=== PATIENT | male | born 1955 | race Caucasian/White ===

== ENCOUNTER 2017-12-02 10:46 | Observation (INO) | payer OTHER ==
[~2017-12-02] VITALS: Ht 172.7 cm; Wt 91.0 kg
[2017-12-02] MEDS ORDERED: METO50TA16 PO (11:19)
[2017-12-02] MEDS ORDERED: MULT-513 PO (11:19)
[2017-12-02] MEDS ORDERED: TRAM-10 PO (11:19)
[2017-12-02] MEDS ORDERED: LISI-729 PO (11:19)
[2017-12-02] MEDS ORDERED: POTASSIUM PO (11:19)
[2017-12-02] MEDS ORDERED: CLIN300C2 PO (11:19)
[2017-12-02] MEDS ORDERED: [UNRECOGNIZED DRUG - REMARK] PO (11:19)
[2017-12-02] MEDS ORDERED: ACET-1256 PO (11:19)
[2017-12-02] MEDS ORDERED: LORA-741 PO (11:19)
[2017-12-02 11:20] VITALS: BP 144/87; PULSE 50; TEMP 36.7; O2SAT 97
[2017-12-02] MEDS ORDERED: BACITRACIN 50000 UNIT VIAL ONE (12:50)
[2017-12-02] MEDS ORDERED: MIDAZOLAM HCL 1 MG/ML 2ML VIAL ONE (12:52)
[2017-12-02] MEDS ORDERED: FENTANYL CITRATE INJ 50 MCG/1 ML 2 ML VIAL ONE (12:52)
[2017-12-02] MEDS ORDERED: PROPOFOL IV EMULSION 10 MG/ML 20 ML VIAL ONE (12:52)
[2017-12-02] MEDS ORDERED: LIDOCAINE HCL 2% 2 ML VIAL (20MG/ML) ONE (12:52)
[2017-12-02] MEDS ORDERED: CEFAZOLIN 2000MG IV PUSH 15 ML IV STA (13:45)
[2017-12-02] MEDS ORDERED: NURSING VERBAL MED ORDER ONE ×2 (13:45→22:30)
[2017-12-02] MEDS ORDERED: BUPIVACAINE 0.5 % 5 MG/1 ML PF 10ML VIAL ONE (14:13)
--- NOTE | 2017-12-02 14:15 | HISTORY & PHYSICAL EXAMINATION ---
DATE OF ADMISSION: 12/02/2017 CHIEF COMPLAINT: Right hand infection. HISTORY OF PRESENT ILLNESS: The patient is a 62-year-old male, states he got a piece of wood stuck in his hand approximately 2 weeks ago. He was seen by his primary care physician approximately 1 week after the initial injury. He was put on oral antibiotics. Recently, he has had worsening swelling, pain and drainage about the hand. He presented to our office today for evaluation. Examination reveals likely draining abscess from the ulnar side of the hand. He is now scheduled for a right hand I and D. PAST MEDICAL HISTORY: Hypertension. PAST SURGICAL HISTORY: Vasectomy, bilateral total knee arthroplasty, ORIF of left wrist, tonsillectomy. MEDICATIONS: Lisinopril, metoprolol. ALLERGIES: SULFA CAUSES A RASH. REVIEW OF SYSTEMS: Noncontributory. PHYSICAL EXAMINATION: GENERAL: Well-nourished, well-developed male who appears stated age. HEENT: Normocephalic, atraumatic, extraocular movements intact, oropharynx pink and moist. NECK: Supple without adenopathy. LUNGS: Clear to auscultation bilaterally. HEART: Regular rate and rhythm. ABDOMEN: Soft, nontender, nondistended. EXTREMITIES: The right ulnar-sided hand demonstrates some obvious swelling in the hypothenar eminence. There are 2 draining wounds on the ulnar side of the hand with purulent drainage. The hand is exquisitely tender to touch. X-RAYS: He had previous x-rays at the urgent care which were negative. ASSESSMENT: Right hand abscess, possible retained foreign body. PLAN: Risks versus benefits were discussed, consent was obtained. We are going to get him set up for an I and D of the right hand. He will spend the night in the hospital for IV antibiotics and will continue as indicated.
[2017-12-02] MEDS ORDERED: DEXAMETHASONE SOD INJ 4 MG/ML VIAL ONE (14:45)
[2017-12-02] MEDS ORDERED: ONDANSETRON INJ 2 MG/ML 2 ML VIAL ONE (14:45)
[2017-12-02] MEDS ORDERED: EpHEDrine SULFATE 50MG/5ML SYR ONE (14:50)
[2017-12-02] MEDS ORDERED: ZOLPIDEM TARTRATE 5 MG TAB PO PRN (15:00)
[2017-12-02] MEDS ORDERED: TRAMADOL HCL 50 MG TAB PO PRN (15:00)
[2017-12-02] MEDS ORDERED: ONDANSETRON INJ 2 MG/ML 2 ML VIAL IV PRN ×2 (15:00→15:15)
[2017-12-02] MEDS ORDERED: METOCLOPRAMIDE HCL INJ 5 MG/ML 2 ML VIAL IV PRN (15:00)
[2017-12-02] MEDS ORDERED: ALUMINUM/MAGNESIUM/SIMETH (MAALOX MAX) 30 ML UDC PO PRN (15:00)
--- NOTE | 2017-12-02 15:07 | [facility] Operative Report ---
Operative Report Operative Date Dec 02, 2017. Pre-Operative Diagnosis Right Hand Incision and Drainage Post-Operative Diagnosis Same as preop Procedure(s) Performed Right Hand Incision and Drainage Surgeon Dr. Herrera Binder Operator Surgeon(s) none Estimated Blood Loss 20 ML Findings 2cm woodun splinter Specimens Microbiology 1. Right Hand Abscess-culture and sensitivity, anerobic and aerobic, gram stain Drains None Anesthesia Type General Complication(s) none Disposition no Recovery Room / PACU I attest to the content of the Intraoperative Record and any orders documented therein. Any exceptions are noted below.
[2017-12-02] MEDS ORDERED: NALOXONE HCL 0.4 MG/1 ML VIAL/CARP IV PRN (15:15)
[2017-12-02] MEDS ORDERED: FLUMAZENIL 0.1 MG/1 ML 10 ML VIAL IV PRN (15:15)
[2017-12-02] MEDS ORDERED: EpHEDrine SULFATE INJ 50 MG/ML AMP IV PRN (15:15)
[2017-12-02] MEDS ORDERED: ATROPINE SULFATE 0.1 MG/ML 5ML SYR IV PRN (15:15)
[2017-12-02] MEDS ORDERED: PROMETHAZINE HCL INJ 12.5 MG in SODIUM CHLORIDE 0.9% 50ML 50 ML IV PRN (15:15)
[2017-12-02] MEDS ORDERED: HYDROmorphone INJ 0.5 MG/0.5 ML SYR IV PRN (15:15)
--- NOTE | 2017-12-02 15:50 | Anesthesiology Progress Note ---
Anesthesia Post Op Note Date & Time Dec 02, 2017 at 15:50 Vital Signs Pain Intensity: 0 Vital Signs Past 12 Hours Date Time Temp Pulse Resp B/P (MAP) Pulse Ox O2 Delivery O2 Flow Rate FiO2 12/02/17 15:40 60 20 144/91 96 Room Air 12/02/17 15:30 66 19 138/83 94 Room Air 12/02/17 15:20 70 20 131/99 96 Room Air 12/02/17 15:10 71 16 123/73 100 Oxymask 4 12/02/17 15:08 36.3 66 18 127/74 100 Oxymask 10 12/02/17 11:20 36.7 50 18 144/87 (106) 97 Room Air Notes Mental Status: alert / awake / arousable, participated in evaluation Pt Amnestic to Procedure: Yes Nausea / Vomiting: adequately controlled Pain: adequately controlled Airway Patency, RR, SpO2: stable & adequate BP & HR: stable & adequate Hydration State: stable & adequate Anesthetic Complications: no major complications apparent
[2017-12-02] MEDS ORDERED: IV FLUIDS COMPLETED PRN (16:00)
[2017-12-02 16:14] VITALS: BP 139/87; PULSE 60; TEMP 36.6; Ht 172.7 cm; Wt 91.0 kg
[2017-12-02] MEDS ORDERED: D5W AND 1/2NSS + 20MEQ KCL 1,000 ML IV SCH (16:40)
[2017-12-02 16:41] VITALS: BP 148/78; PULSE 66; TEMP 36.5; O2SAT 93
--- NOTE | 2017-12-02 16:42 | OPERATIVE REPORT ---
DATE OF OPERATION: 12/02/2017 PREOPERATIVE DIAGNOSIS: Foreign body with abscess, right hand. POSTOPERATIVE DIAGNOSIS: Foreign body with abscess, right hand. PROCEDURE: Incision and drainage and removal of wooden foreign body, right hand. SURGEON: Dr. Herrera. ANESTHESIA: General. COMPLICATIONS: None. DESCRIPTION OF PROCEDURE: Following induction of adequate general anesthesia, the patient's right hand was prepped and draped in usual sterile manner. Limb was exsanguinated with elevation only and tourniquet was inflated to 250 mmHg. An L-shaped incision was made from the entrance wound to the area of purulence. It was a V-shaped incision. Initial purulence was cultured, and blunt and sharp dissection was used to explore the wound tract. At the base of the wound, a wooden splinter was identified. The hand was irrigated with roughly 4500 mL of pulsatile irrigation with Kantrex. There being no additional foreign bodies or purulence. The incision was loosely closed by just using a single 3-0 nylon simple suture at the apex of the incision. Sterile dressing of Adaptic, 4x4s, Kerlix and 2-inch Chad was applied. The patient tolerated the procedure well. I attest to the content of the Intraoperative Record and any orders documented therein. Any exception s are noted below.
[2017-12-02 17:13] VITALS: BP 142/82; PULSE 64; TEMP 36.6; O2SAT 96
[2017-12-02 18:07] VITALS: BP 150/76; PULSE 67; TEMP 36.8; O2SAT 93
[2017-12-02 18:26] LABS: CREATININE 0.93 mg/dl (0.60-1.40)
[2017-12-02] MEDS: KETOROLAC TROMETHAMINE 30 MG/ML VIAL IV. SCH (20:19)
[2017-12-02 20:25] VITALS: BP 142/84; PULSE 79; TEMP 36.6; O2SAT 95
[2017-12-02] MEDS: CEFAZOLIN IV 2,000 MG in SYRINGE 0 ML IV SCH (21:51)
[2017-12-02] MEDS: ACETAMINOPHEN 500 MG TAB PO SCH (21:56)
[2017-12-03 00:05] VITALS: BP 142/83; PULSE 58; TEMP 36.6; O2SAT 95
[2017-12-03] MEDS: KETOROLAC TROMETHAMINE 30 MG/ML VIAL IV. SCH ×2 (02:26→08:53)
[2017-12-03 03:50] VITALS: BP 132/84; PULSE 74; TEMP 36.7; O2SAT 95
[2017-12-03] MEDS: ACETAMINOPHEN 500 MG TAB PO SCH (06:17)
[2017-12-03] MEDS: CEFAZOLIN IV 2,000 MG in SYRINGE 0 ML IV SCH (06:17)
[2017-12-03 07:21] VITALS: BP 148/89; PULSE 49; TEMP 36.6; O2SAT 96
[2017-12-03] MEDS ORDERED: METOPROLOL TARTRATE 50 MG TAB PO SCH (09:00)
[2017-12-03] MEDS ORDERED: LISINOPRIL 5 MG TAB PO SCH (09:00)
--- NOTE | 2017-12-03 09:22 | Orthopedic Progress Note ---
Orthopedic Progress Note Date of Service Dec 03, 2017. Subjective Post OP Day: 1 Reports: feeling well Objective N/V intact (fingers mobile), dressing C/D/I (Dressing changed, incision clean and dry) Date Time Temp Pulse Resp B/P (MAP) Pulse Ox O2 Delivery O2 Flow Rate FiO2 12/03/17 07:21 36.6 49 16 148/89 (108) 96 Room Air 12/03/17 03:50 36.7 74 20 132/84 (100) 95 Room Air 12/03/17 00:05 36.6 58 20 142/83 (102) 95 Room Air 12/02/17 23:15 Room Air 12/02/17 20:25 36.6 79 18 142/84 (103) 95 Room Air 12/02/17 18:07 36.8 67 18 150/76 (100) 93 Room Air 12/02/17 17:13 36.6 64 18 142/82 (102) 96 Room Air 12/02/17 16:41 36.5 66 16 148/78 (101) 93 Room Air 12/02/17 16:35 Room Air 12/02/17 16:14 36.6 60 16 139/87 Room Air 12/02/17 15:50 36.3 64 22 139/79 97 Room Air 12/02/17 15:40 60 20 144/91 96 Room Air 12/02/17 15:30 66 19 138/83 94 Room Air 12/02/17 15:20 70 20 131/99 96 Room Air 12/02/17 15:10 71 16 123/73 100 Oxymask 4 12/02/17 15:08 36.3 66 18 127/74 100 Oxymask 10 12/02/17 11:20 36.7 50 18 144/87 (106) 97 Room Air Assessment & Plan Assessment: 62 yo male stable POD #1 s/p I&D, removal foreign body right hand Plan: 1. D/C home on po abx
[2017-12-03] MEDS ORDERED: CEPH500T PO (09:25)
--- NOTE | 2017-12-03 09:27 | Discharge Instructions ---
Discharge Instructions Date of Service Dec 03, 2017. Admission Reason for Admission: Foreign Body Of Hand,Right,Infected Discharge Discharge Diagnosis / Problem: Right hand infection, foreign body Discharge Goals Goal(s): Decrease discomfort, Improve function Activity Recommendations Activity Limitations: as noted below . Instructions / Follow-Up Instructions / Follow-Up Maintain dressing until follow-up with MD. Keep dressing clean and dry. Follow -up with Dr Herrera 12/07/17. Call [phone] for appt, Current Hospital Diet Patient's current hospital diet: Regular Diet Discharge Diet Recommended Diet: Regular Diet Procedures Procedures Performed: Right Hand Incision and Drainage Pending Studies Studies pending at discharge: no Medical Emergencies . Who to Call and When: Medical Emergencies: If at any time you feel your situation is an emergency, please call 911 immediately. . Non-Emergent Contact Non-Emergency issues call your: Surgeon Call Non-Emergent contact if: temperature is above 101.5, your pain is not controlled, wound has increased drainage, wound has increased redness . "Provider Documentation" section prepared by Earle Bradley PA-C. . [place] Drug Monitoring Program Search Results: patient reviewed within database, no issues identified
--- NOTE | 2017-12-03 10:15 | Anesthesiology Progress Note ---
Anesthesia Post Op Note Date & Time Dec 03, 2017 at 10:14 Vital Signs Pain Intensity: 0.0 Vital Signs Past 12 Hours Date Time Temp Pulse Resp B/P (MAP) Pulse Ox O2 Delivery O2 Flow Rate FiO2 12/03/17 07:21 36.6 49 16 148/89 (108) 96 Room Air 12/03/17 03:50 36.7 74 20 132/84 (100) 95 Room Air 12/03/17 00:05 36.6 58 20 142/83 (102) 95 Room Air 12/02/17 23:15 Room Air Notes Mental Status: alert / awake / arousable, participated in evaluation Pt Amnestic to Procedure: Yes Nausea / Vomiting: adequately controlled Pain: adequately controlled Airway Patency, RR, SpO2: stable & adequate BP & HR: stable & adequate Hydration State: stable & adequate Anesthetic Complications: no major complications apparent
[2017-12-03 10:20] VITALS: BP 139/81; PULSE 60; TEMP 36.7; O2SAT 95
[2017-12-03 10:41] VITALS: BP 148/89; PULSE 49; TEMP 36.6; O2SAT 96
--- NOTE | 2017-12-09 20:18 | DISCHARGE SUMMARY ---
CHIEF COMPLAINT: Foreign body, right hand. Please see complete history and physical examination. HOSPITAL COURSE: The patient underwent a right hand I and D, removal of foreign body without complication. He tolerated the procedure well and was discharged to recovery room in stable condition. His postop course was relatively uneventful. His postoperative pain was reasonably well controlled. He was started on IV antibiotics for his hand infection. The next day, his dressing was changed and his wound was benign. He was discharged home on oral antibiotics. His intraoperative culture grew out pantoea agglomerans and Enterobacter cloacae. Both organisms were pansensitive. He was sent home on oral cephalexin. He will leave his dressing intact until followup in a few days for a dressing change and wound check. He will follow up in 2-3 days as indicated.
== END 2017-12-03 11:00 | disposition home or self-care (01) ==
LOC: C.OR 10:46 → C.MSW 14:59 → ENRESERV 15:43
DX: S61.441A Puncture wound with foreign body of right hand, initial encounter (principal); L02.511 Cutaneous abscess of right hand; W45.8XXA Other foreign body or object entering through skin, initial encounter; J45.909 Unspecified asthma, uncomplicated; I10 Essential (primary) hypertension; E66.9 Obesity, unspecified; Z68.30 Body mass index [BMI] 30.0-30.9, adult; Z88.2 Allergy status to sulfonamides; Z96.653 Presence of artificial knee joint, bilateral